=== PATIENT | female | born 1985 | race Caucasian/White ===

== ENCOUNTER 2024-11-18 13:10 | Emergency (ER) | payer OTHER ==
[~2024-11-18] VITALS: Ht 167.6 cm; Wt 72.6 kg
[2024-11-18 13:12] VITALS: O2SAT 98
[2024-11-18] MEDS: FAMOTIDINE 20MG/2ML VIAL IV ONE (14:03)
[2024-11-18] MEDS: METHYLPREDNISOLONE SOD SUCC 125MG/2ML (ACT-O-VIAL) IV ONE (14:04)
[2024-11-18] MEDS: DIPHENHYDRAMINE 50MG/ML VIAL IV ONE (14:05)
[2024-11-18 18:57] VITALS: TEMP 36.4
[2024-11-18] MEDS ORDERED: P50 MT (18:59)
[2024-11-18] MEDS ORDERED: FAMO-135 MT (18:59)
[2024-11-18] MEDS ORDERED: EPIN0.3P3 IM (18:59)
[2024-11-18] MEDS ORDERED: B50 MT (19:00)
[2024-11-18 19:47] VITALS: BP 110/76; PULSE 82; RESP 17; O2SAT 98
[2024-11-18] MEDS ORDERED: EPIN0.3A3 IM (20:06)
== END 2024-11-18 20:17 | disposition home or self-care (01) ==
LOC: ER 13:10
DX: T78.2XXA Anaphylactic shock, unspecified, initial encounter (principal); F32.A Depression, unspecified; Z79.899 Other long term (current) drug therapy; Z90.89 Acquired absence of other organs; Z91.010 Allergy to peanuts; X58.XXXA Exposure to other specified factors, initial encounter; Y93.89 Activity, other specified; Y92.89 Other specified places as the place of occurrence of the external cause; Y99.8 Other external cause status
CPT/HCPCS: 96374; 96375; 99285; J1200; J3490; J2919; Z7610 ×2